=== PATIENT | female | born 1955 | race Caucasian/White ===

== ENCOUNTER 2019-07-23 21:39 | Emergency (ER) | payer MEDICARE, MEDICAID ==
[~2019-07-23] VITALS: Ht 162.6 cm; Wt 99.8 kg
[2019-07-23 22:37] VITALS: BP 151/82
--- NOTE | 2019-07-23 22:53 | NUR ---
PT WAS TRIAGED AND IS WAITING FOR ROOM TO BE AVAILABLE.
[2019-07-23] MEDS ORDERED: HYDROCODONE/APAP 5/325MG 1 EACH TABLET PO ONE (23:30)
[2019-07-23] MEDS ORDERED: HYDROCODONE/APAP 5/325MG 1 EACH TABLET ONE (23:39)
--- NOTE | 2019-07-24 02:34 | NUR ---
Patient discharged to home in stable condition. Written and verbal after care instructions given. Patient verbalizes understanding of instruction AND RX. PT AMBULATED OUT WITH A STEADY GAIT. VSS.
== END 2019-07-24 02:35 | disposition home or self-care (01) ==
LOC: ER 21:44
DX: R07.81 Pleurodynia (principal); I10 Essential (primary) hypertension; I48.91 Unspecified atrial fibrillation; F41.9 Anxiety disorder, unspecified; Z90.89 Acquired absence of other organs; Z90.710 Acquired absence of both cervix and uterus; Z90.49 Acquired absence of other specified parts of digestive tract
CPT/HCPCS: 71100-TC

== ENCOUNTER 2023-01-05 03:28 | Emergency (ER) | payer MEDICARE, OTHER ==
[~2023-01-05] VITALS: Ht 162.6 cm; Wt 90.7 kg
[2023-01-05] MEDS ORDERED: ONDANSETRON HCL/PF 4 MG/2 ML VIAL ONE (03:37)
--- NOTE | 2023-01-05 03:37 | NUR ---
[id number] FROM HOME C/O PALPITATIONS X45 MINUTES. PATIENT IS AOX4. ABLE TO MAKE NEEDS KNOWN. ATTACHED TO MONITOR. VITALS CHECKED.
--- NOTE | 2023-01-05 03:42 | NUR ---
EKG DONE AT BEDSIDE
--- NOTE | 2023-01-05 03:44 | NUR ---
IV AMENA G18 INSERTED ON RIGHT AC. BLOOD DRAWN AND SENT TO LAB
[2023-01-05] MEDS: ONDANSETRON HCL/PF 4 MG/2 ML VIAL IV ONE (03:46)
[2023-01-05 03:51] LABS: BASOPHILS % (AUTO) 0.7 % (0.0-2.0); EOSINOPHILS % (AUTO) 1.1 % (0.0-6.0); HEMATOCRIT 39 % (33-45); HEMOGLOBIN 13.2 g/dL (11.5-14.8); LYMPHOCYTES # (AUTO) 1.2 K/uL (0.8-4.8); LYMPHOCYTES % (AUTO) 19.6 % (20.0-44.0); MEAN CORPUSCULAR HGB CONC 34 g/dl (31.0-36.0); MEAN CORPUSCULAR VOLUME 81 fL (82-100); MONOCYTES # (AUTO) 0.4 K/uL (0.1-1.30); NEUTROPHILS # (AUTO) 4.4 K/uL (1.8-8.9); NEUTROPHILS % (AUTO) 71.6 % (43.0-81.0); PLATELET COUNT (AUTO) 91 K/uL (150-450); RED BLOOD CELL COUNT(AUTO) 4.85 MIL/uL (4.0-5.2); WHITE BLOOD COUNT (AUTO) 6.1 K/uL (4.3-11.0)
--- NOTE | 2023-01-05 03:55 | NUR ---
RN ENTEROSTOMAL AT BEDSIDE
[2023-01-05 04:03] LABS: ALANINE AMINOTRANSFERASE 167 U/L (12-78); ALBUMIN 3.5 g/dL (3.4-5.0); ALKALINE PHOSPHATASE 71 U/L (46-116); ASPARTATE AMINOTRANSFERASE 90 U/L (15-37); BILIRUBIN,DIRECT 0.2 mg/dL (0.0-0.2); BILIRUBIN,TOTAL 0.7 mg/dL (0.2-1.0); CALCIUM, SERUM 9.1 mg/dL (8.5-10.1); CARBON DIOXIDE 30 mmol/L (21-32); CHLORIDE 106 mmol/L (98-107); CREATININE 0.8 mg/dL (0.6-1.3); GLUCOSE 166 mg/dL (74-106); POTASSIUM 3.7 mmol/L (3.5-5.1); SODIUM SERUM 144 mmol/L (136-145); TOTAL PROTEIN, SERUM 6.9 g/dL (6.4-8.2); UREA NITROGEN, BLOOD 22 mg/dL (7-18)
[2023-01-05] MEDS ORDERED: LORAZEPAM INJ 2 MG/ML VIAL ONE (04:28)
[2023-01-05] MEDS: IV NS 0.9% 1,000 ML IV ONE (04:33)
[2023-01-05] MEDS: LORAZEPAM INJ 2 MG/ML VIAL IV ONE (04:33)
[2023-01-05 04:40] LABS: EOSINOPHILS % (MANUAL) 1 % (0-4); LYMPHOCYTES % (MANUAL) 22 % (16-48); MONOCYTES % (MANUAL) 8 % (0-11.0); NEUTROPHILS % (MANUAL) 69 (42-76)
--- NOTE | 2023-01-05 05:32 | NUR ---
PT FOR DISCHARGE, SHE IS WAITING FOR HER OTHER SON TO PICK HER UP.
[2023-01-05 05:55] VITALS: BP 119/71; TEMP 98.1; O2SAT 97
--- NOTE | 2023-01-05 05:55 | NUR ---
IV AMENA REMOVED
--- NOTE | 2023-01-05 05:55 | NUR ---
Patient discharged to home in stable condition. Written and verbal after care instructions given. Patient verbalizes understanding of instruction.
== END 2023-01-05 05:56 | disposition home or self-care (01) ==
LOC: ER 03:29
DX: I48.91 Unspecified atrial fibrillation (principal); E78.00 Pure hypercholesterolemia, unspecified; I10 Essential (primary) hypertension; F41.9 Anxiety disorder, unspecified; Z90.49 Acquired absence of other specified parts of digestive tract; Z60.2 Problems related to living alone
CPT/HCPCS: 99285; 96374; 71045; 96375; 93005; 85025; 80048; 80076; 36415; 84484; 85007; J2060; J2405; J7030

== ENCOUNTER 2023-06-14 18:16 | Inpatient (IN) | payer MEDICARE, OTHER ==
[~2023-06-14] VITALS: Ht 162.6 cm; Wt 93.9 kg
[2023-06-14] MEDS ORDERED: HYDR25TA4 PO (19:30)
[2023-06-14] MEDS ORDERED: ASPI-1420 PO (19:30)
[2023-06-14] MEDS ORDERED: AMLO-382 PO (19:30)
[2023-06-14] MEDS ORDERED: HYDR-3972 PO (19:30)
[2023-06-14] MEDS ORDERED: ASCO100058 PO (19:30)
[2023-06-14] MEDS ORDERED: DICL50TA9 PO (19:30)
[2023-06-14] MEDS ORDERED: FLUT16SP BNOSTRILS (19:30)
[2023-06-14] MEDS ORDERED: MECL-159 PO (19:30)
[2023-06-14] MEDS ORDERED: LORA2TAB95 PO (19:30)
[2023-06-14] MEDS ORDERED: APIX5TAB PO (19:30)
[2023-06-14] MEDS ORDERED: LIDO30AD10 TP (19:30)
[2023-06-14] MEDS ORDERED: ACET-2605 PO (19:30)
[2023-06-14 19:50] LABS: BASOPHILS % (AUTO) 0.4 % (0.0-2.0); EOSINOPHILS % (AUTO) 0.4 % (0.0-6.0); HEMATOCRIT 39 % (33-45); HEMOGLOBIN 13.1 g/dL (11.5-14.8); LYMPHOCYTES # (AUTO) 0.5 K/uL (0.8-4.8); LYMPHOCYTES % (AUTO) 6.7 % (20.0-44.0); MEAN CORPUSCULAR HEMOGLOBIN 28 PG (26.0-33.0); MEAN CORPUSCULAR HGB CONC 34 g/dl (31.0-36.0); MEAN CORPUSCULAR VOLUME 82 fL (82-100); MONOCYTES # (AUTO) 0.5 K/uL (0.1-1.30); NEUTROPHILS # (AUTO) 6.5 K/uL (1.8-8.9); NEUTROPHILS % (AUTO) 85.5 % (43.0-81.0); PLATELET COUNT (AUTO) 80 K/uL (150-450); RED BLOOD CELL COUNT(AUTO) 4.73 MIL/uL (4.0-5.2); RED CELL DISTRIBUTION WIDTH 14.1 % (11.5-15.0); WHITE BLOOD COUNT (AUTO) 7.6 K/uL (4.3-11.0)
[2023-06-14 20:02] LABS: CALCIUM, SERUM 8.9 mg/dL (8.5-10.1); CARBON DIOXIDE 28 mmol/L (21-32); CHLORIDE 96 mmol/L (98-107); CREATININE 0.9 mg/dL (0.6-1.3); GLUCOSE 202 mg/dL (74-106); POTASSIUM 3.1 mmol/L (3.5-5.1); SODIUM SERUM 133 mmol/L (136-145); UREA NITROGEN, BLOOD 13 mg/dL (7-18)
[2023-06-14 20:14] LABS: ALANINE AMINOTRANSFERASE 143 U/L (12-78); ALBUMIN 3.5 g/dL (3.4-5.0); ALKALINE PHOSPHATASE 70 U/L (46-116); ASPARTATE AMINOTRANSFERASE 76 U/L (15-37); BILIRUBIN,DIRECT 0.5 mg/dL (0.0-0.2); BILIRUBIN,TOTAL 1.2 mg/dL (0.2-1.0); NT-PRO BNP 835 pg/mL (0-125); TOTAL PROTEIN, SERUM 7.3 g/dL (6.4-8.2)
[2023-06-14 20:31] LABS: INR 1.14 (0.91-1.10); PARTIAL THROMBOPLASTIN TIME 28.4 SEC (24.3-34.3)
[2023-06-14] MEDS ORDERED: ONDANSETRON HCL/PF 4 MG/2 ML VIAL IVP PRN (21:00)
[2023-06-14] MEDS ORDERED: MORPHINE SULFATE INJ 2 MG/ML DISP.SYRIN IV PRN (21:00)
[2023-06-14] MEDS ORDERED: ACETAMINOPHEN 325 MG TABLET PO PRN (21:00)
[2023-06-14] MEDS ORDERED: hydrALAZINE HCL IV 20 MG VIAL IV PRN (21:00)
[2023-06-14] MEDS ORDERED: DEXTROSE 50%-WATER 50 ML DISP.SYRIN IV PRN (21:00)
[2023-06-14] MEDS ORDERED: FUROSEMIDE 20 MG/2 ML VIAL ONE (21:11)
[2023-06-14] MEDS: FUROSEMIDE 20 MG/2 ML VIAL IV ONE ×2 (21:19→21:28)
[2023-06-14 21:33] LABS: LYMPHOCYTES % (MANUAL) 9 % (16-48); MONOCYTES % (MANUAL) 4 % (0-11.0); NEUTROPHILS % (MANUAL) 87 (42-76)
[2023-06-14 21:34] LABS: PLATELET ESTIMATE DECREASED
[2023-06-14] MEDS ORDERED: LORAZEPAM 1 MG TABLET PO PRN (22:30)
[2023-06-14 23:15] VITALS: BP 145/75; TEMP 98.2; O2SAT 100
[2023-06-14] MEDS: BLOOD SUGAR DIAGNOSTIC 1 EACH STRIP IN SCH (23:26)
[2023-06-14] MEDS: INSULIN REGULAR, HUMAN 100 UNIT/ML 3 ML VIAL SQ PRN (23:27)
[2023-06-15 04:00] VITALS: BP 142/61; TEMP 98; O2SAT 100
[2023-06-15] MEDS: BLOOD SUGAR DIAGNOSTIC 1 EACH STRIP IN SCH ×4 (06:32→22:16)
[2023-06-15] MEDS: INSULIN REGULAR, HUMAN 100 UNIT/ML 3 ML VIAL SQ PRN ×2 (06:33→22:16)
[2023-06-15 07:16] LABS: BASOPHILS # (AUTO) 0.1 K/uL (0.0-0.2); BASOPHILS % (AUTO) 0.8 % (0.0-2.0); EOSINOPHILS % (AUTO) 0.2 % (0.0-6.0); HEMATOCRIT 37 % (33-45); HEMOGLOBIN 12.8 g/dL (11.5-14.8); LYMPHOCYTES # (AUTO) 1.2 K/uL (0.8-4.8); LYMPHOCYTES % (AUTO) 16.8 % (20.0-44.0); MEAN CORPUSCULAR HEMOGLOBIN 28 PG (26.0-33.0); MEAN CORPUSCULAR HGB CONC 35 g/dl (31.0-36.0); MEAN CORPUSCULAR VOLUME 81 fL (82-100); MONOCYTES # (AUTO) 0.9 K/uL (0.1-1.30); MONOCYTES % (AUTO) 12.3 % (2.0-12.0); NEUTROPHILS # (AUTO) 5.1 K/uL (1.8-8.9); NEUTROPHILS % (AUTO) 69.9 % (43.0-81.0); PLATELET COUNT (AUTO) 75 K/uL (150-450); RED BLOOD CELL COUNT(AUTO) 4.56 MIL/uL (4.0-5.2); RED CELL DISTRIBUTION WIDTH 14.1 % (11.5-15.0); WHITE BLOOD COUNT (AUTO) 7.3 K/uL (4.3-11.0)
[2023-06-15 08:28] LABS: ALBUMIN 3.3 g/dL (3.4-5.0); BILIRUBIN,TOTAL 1.2 mg/dL (0.2-1.0); CALCIUM, SERUM 8.9 mg/dL (8.5-10.1); MAGNESIUM 2.1 mg/dL (1.8-2.4); PHOSPHORUS 2.9 mg/dL (2.5-4.9); POTASSIUM 2.9 mmol/L (3.5-5.1)
[2023-06-15] MEDS ORDERED: POTASSIUM CHLORIDE 20 MEQ TAB.PRT.SR PO ONE (09:00)
[2023-06-15] MEDS: HYDROCHLOROTHIAZIDE 25 MG TABLET PO SCH (09:45)
[2023-06-15] MEDS: ASPIRIN EC 81 MG TABLET.DR PO SCH (09:45)
[2023-06-15] MEDS: AMLODIPINE BESYLATE 10 MG TABLET PO SCH (09:46)
[2023-06-15] MEDS: VALSARTAN 80 MG TABLET PO SCH (09:46)
[2023-06-15] MEDS: APIXABAN 5 MG TABLET PO SCH ×3 (09:48→21:00)
[2023-06-15 11:29] LABS: ANISOCYTOSIS 1+; PLATELET ESTIMATE DECREASED
[2023-06-15] MEDS: GUAIFENESIN/D-METHORPHAN HB 5 ML UDC PO PRN (17:48)
[2023-06-15 20:00] VITALS: BP 141/44; TEMP 97.9; O2SAT 96
[2023-06-16] VITALS: BP 133/67; TEMP 97.3; O2SAT 96
[2023-06-16 04:00] VITALS: BP 134/63; TEMP 98.8; O2SAT 92
[2023-06-16] MEDS: BLOOD SUGAR DIAGNOSTIC 1 EACH STRIP IN SCH ×2 (06:37→11:05)
[2023-06-16] MEDS: INSULIN REGULAR, HUMAN 100 UNIT/ML 3 ML VIAL SQ PRN ×2 (06:38→11:05)
[2023-06-16 08:00] VITALS: BP 149/84; TEMP 98.6; O2SAT 94
[2023-06-16] MEDS: ASPIRIN EC 81 MG TABLET.DR PO SCH (08:19)
[2023-06-16] MEDS: VALSARTAN 80 MG TABLET PO SCH (08:19)
[2023-06-16] MEDS: HYDROCHLOROTHIAZIDE 25 MG TABLET PO SCH (08:20)
[2023-06-16] MEDS: AMLODIPINE BESYLATE 10 MG TABLET PO SCH (08:20)
[2023-06-16] MEDS: APIXABAN 5 MG TABLET PO SCH ×2 (08:22→08:28)
[2023-06-16] MEDS ORDERED: MENTHOL/CETYLPYRD (CEPACOL) 1 LOZ LOZENGE PO PRN (09:00)
[2023-06-16] MEDS: GUAIFENESIN/D-METHORPHAN HB 5 ML UDC PO PRN (09:31)
[2023-06-16 09:46] LABS: POTASSIUM 3.1 mmol/L (3.5-5.1)
[2023-06-16] MEDS ORDERED: POTASSIUM CHLORIDE 20 MEQ TAB.PRT.SR PO ONE (11:30)
[2023-06-16] MEDS ORDERED: OMEP20CA15 PO (11:40)
[2023-06-16 11:50] VITALS: BP 121/70; TEMP 98.4; O2SAT 96
== END 2023-06-16 14:13 | disposition home or self-care (01) | DRG 311 ==
LOC: ER 18:18 → TELE 21:55
PROVIDERS: ADMIT Internal Medicine; ATTEND Internal Medicine
DX: I20.0 Unstable angina (principal); I50.33 Acute on chronic diastolic (congestive) heart failure; E87.1 Hypo-osmolality and hyponatremia; D68.9 Coagulation defect, unspecified; I11.0 Hypertensive heart disease with heart failure; E11.9 Type 2 diabetes mellitus without complications; D69.6 Thrombocytopenia, unspecified; F41.9 Anxiety disorder, unspecified; E87.6 Hypokalemia; I48.0 Paroxysmal atrial fibrillation; Z79.01 Long term (current) use of anticoagulants; E78.5 Hyperlipidemia, unspecified; R74.01 Elevation of levels of liver transaminase levels; E80.6 Other disorders of bilirubin metabolism; Z91.199 Patient's noncompliance with other medical treatment and regimen due to unspecified reason
CPT/HCPCS: 36415; 71045-TC; 80048-TC; 80053-TC; 80076-TC; 82962-TC; 83735-TC; 83880; 84100-TC; 84484-TC; 85025-TC; 85730-TC; 93307-TC; G0378; J1815; J1940